=== PATIENT | female | born 1975 | race Caucasian/White ===

== ENCOUNTER 2017-09-20 19:12 | Emergency (ER) | payer OTHER ==
[~2017-09-20] VITALS: Ht 175.3 cm; Wt 70.3 kg
[~2017-09-20 19:12] MED LIST: ACETAMINOPHEN-1 EAC1 PO; AMBIEN 5 MG TABL5 M1 PO; CIPRO500 MG PO; FLEXERIL PO; HYDROCODONE-AP1 EAC6 PO; HYDROCODONE-APA1 TA1 PO; MEDROLDOSEPACK PO; MOBIC7.5 MG PO; NORCO 5-325 TA1 EACH PO; NORFLEX100 MG PO; PROZAC20 MG PO; ROBAXIN 750 MG750 M1 PO; TORADOL 10 MG T10 MG PO; VALIUM5 MG PO; VICOPROFEN 2001 EAC1 PO; XANAX 0.25 MG0.25 MG PO; ZOLOFT25 MG PO; [UNRECOGNIZED DRUG - OTHER] MC
[2017-09-20 19:21] VITALS: BP 111/75
[2017-09-20] MEDS ORDERED: FLEXERIL PO (19:26)
[2017-09-20] MEDS ORDERED: MEDROLDOSEPACK PO (19:36)
[2017-09-20] MEDS ORDERED: NAPROSYN500 MG PO (19:36)
[2017-09-20] MEDS ORDERED: ZANAFLEX4 MG PO (19:36)
== END 2017-09-20 19:57 | disposition home or self-care (01) ==
LOC: M.ERS 19:12
DX: G89.29 Other chronic pain (principal); M54.2 Cervicalgia; Z76.0 Encounter for issue of repeat prescription